=== PATIENT | male | born 1955 | race Caucasian/White ===

== ENCOUNTER 2022-07-05 12:37 | Emergency (ER) | payer OTHER, SELFPAY ==
[2022-07-05 12:52] VITALS: BP 181/83; PULSE 64; RESP 18; TEMP 36.2; O2SAT 95; BMI 37.1
[2022-07-05 15:43] VITALS: BP 133/91; PULSE 65; RESP 20; TEMP 36.4; O2SAT 96
--- NOTE | 2022-07-05 16:05 | ED_ITS ---
HPI - General Adult General Time Seen by Provider: 16:05 Date Seen: 07/05/22 Chief complaint: Back Injury/Pain Stated complaint: Lower Back Pain Time Seen by Provider: 07/05/22 16:05 Source: patient and RN notes reviewed Mode of arrival: ambulatory Limitations: no limitations History of Present Illness HPI narrative: Patient presents with intermittent left sided back pain that is non-radiating since this am. This awoke him early today from sleep, did proceed to work. Has had nausea when the pain has been severe. Did not feel like eating lunch today but no abdominal pain, no vomiting, no diarrhea, no constipation. Thinks about 6 months ago had self-limited episode. No trauma. Pain doesn't go into legs. No urinary symptoms, no blood in urine. No history of kidney stones. Tried 2 advil this am and no change. Has not had any pain for about 2 hours, no current nausea. No associated respiratory symptoms. Takes Advil PM, lisinopril and simvastatin. Related Data Home Medications Medication Instructions Recorded Confirmed lisinopril 07/05/22 simva 07/05/22 Previous Rx's Medication Instructions Recorded ketorolac 10 mg tablet 10 mg PO Q6H PRN pain 5 days #20 07/05/22 tabs tamsulosin 0.4 mg capsule (Flomax) 0.4 mg PO DAILY #14 caps 07/05/22 Review of Systems Status of ROS: Reports: 10 or more systems reviewed and unremarkable except as noted in History and below PFSH PFS Social History Smoking Status: Former smoker What tobacco products do you use: cigarettes Smoking quit date/years: >15 years ago Do you use any of these nicotine containing products: None Second hand tobacco smoke exposure: No How often do you have a drink containing alcohol: 2-4 times a month How many standard drinks containing alcohol do you have on a typical day: 1 or 2 AUDIT-C Alcohol total score: 2 Non-prescribed substance use: denies use Exam Const: Vital Signs, click to edit/add: Vital Signs - 24 hr 07/05/22 12:52 07/05/22 15:43 Temperature 97.1 F L 97.5 F L Pulse Rate [Right Pulse Oximeter] 64 65 Respiratory Rate 18 20 Blood Pressure [Ri ght Upper Arm] 181/83 H 133/91 H Pulse Oximetry 95 96 Oxygen Delivery Me thod Room Air Documenting provider has reviewed patient's vital signs: yes Common normals: no apparent distress (sitting up on edge of bed), average body habitus, oriented x3, no limitations, healthy appearing, alert and well nourished General appearance: cooperative, comfortable, well kempt and well developed HENMT: Common normals: normocephalic, head/scalp atraumatic, hearing grossly normal bilaterally, external nose normal, nasal mucous membranes and turbinates normal, moist oral mucous membranes, oropharynx normal and dentition normal Head and scalp: normocephalic and atraumatic Nose: external nose normal and nasal mucous membranes and turbinates normal Eye: Common normals: PERRL, EOMs intact bilaterally, conjunctivae normal and no scleral icterus General eye: normal appearance of both eyes Conjunctiva: conjunctiva(e) normal Pupil: PERRL Neck & C-Spine: Common normals: full ROM, no lymphadenopathy, supple, no meningeal signs, no JVD and thyroid normal Thyroid: thyroid normal Resp: Common normals: normal respiratory effort, no retractions, no use of accessory muscles and clear to auscultation bilaterally Auscultation: clear to auscultation bilaterally Cardio: Common normals: no JVD, regular rate, regular rhythm, S1 normal heart sound, S2 normal heart sound, no gallops, no clicks and no murmurs Rate: regular rate Rhythm: regular rhythm Heart sounds: S1 normal and S2 normal GI: Common normals: Normal to inspection, nondistended, normoactive bowel sounds present, soft to palpation, non-tender, no hepatosplenomegaly and no ma sses Palpation: soft and no hepatosplenomegaly : Common normals: no CVA tenderness Bladder/kidney exam: no CVA tenderness Back & Pelvis: Common normals: no CVA tenderness, thoracic and lumbar spine normal to inspection, no thoracic nor lumbar tenderness, thoraco-lumbar ROM normal and straight leg raise negative bilaterally Extremity: Common normals: normal to inspection, full ROM, no calf tenderness and no pedal edema Neuro: Common normals: oriented x3, moves all extremities, no focal motor deficits and no sensory deficits noted Sensorium/orientation: alert Meningeal signs: no meningeal signs Psych: Appearance: well kempt Course Course Hospital Course: We will proceed with CT non-contrast as I am suspicious for kidney stones. Presentation seems to be consistent with kidney stone. Will get baseline labs including a urinalysis. Right now is pain-free and nausea free, will intervene if need be should he have return of symptoms. Reevaluation(s) Reevaluation #1: Reviewed with patient and provided a copy of his CT report. He has nonobstructing retained stones in the right kidney. Reviewed with him these could pass tomorrow, may never passed, we really have no way of telling. As far as the left side, there is an obstructing kidney stone that is 2 mm in the dist al left ureter. Advised him that he will likely have some intermittent pain until this moves through to the bladder. At 2 mm, it should pass with out need for intervention. We will place him on Flomax, discussed the rationale for that. He seems to be quite comfortable. Will send him with a course of Toradol given he has normal kidney function. Can supplement with Tylenol. Will send with a week of Flomax as well. Reviewed signs and symptoms for return. Time: 17:42 Vital Signs Vital signs: Initial Vital Signs Temperature 97.1 F L 07/05/22 12:52 Temperature Source Temporal Artery Scan 07/05/22 12:52 Pulse Rate 64 07/05/22 12:52 Respiratory Rate 18 07/05/22 12:52 Blood Pressure 181/83 H 07/05/22 12:52 Blood Pressure Mean 115 07/05/22 12:52 Blood Pressure Position Sitting 07/05/22 12:52 Pulse Oximetry 95 07/05/22 12:52 Oxygen Delivery Method 07/05/22 12:52 Vital Signs Temperature 97.1 F L 07/05/22 12:52 Pulse Rate 64 07/05/22 12:52 Respiratory Rate 18 07/05/22 12:52 Blood Pressure 181/83 H 07/05/22 12:52 Pulse Oximetry 95 07/05/22 12:52 Oxygen Delivery Method 07/05/22 12:52 Temperature 97.5 F L 07/05/22 15:43 Pulse Rate 65 07/05/22 15:43 Respiratory Rate 20 07/05/22 15:43 Blood Pressure 133/91 H 07/05/22 15:43 Pulse Oximetry 96 07/05/22 15:43 Oxygen Delivery Method 07/05/22 12:52 Medical Decision Making Lab Data Lab results reviewed: Yes I reviewed the patient's lab results Labs: Lab Results 07/05/22 07/05/22 07/05/22 Range/Units 16:45 16:45 16:45 WBC 9.83 (4.50-11.00) K/uL RBC 5.23 (4.30-5.90) m/uL Hgb 15.6 (13.5-17.5) gm/dL Hct 45.4 (37.0-53.0) % MCV 87 (80-100) fL MCH 30 (26-34) pg MCHC 34 (32-36) gm/dL RDW Coeff of Jonny 13.0 (11.5-15.5) % Plt Count 158 (140-440) K/uL Neut % (Auto) 83.4 H (42.0-72.0) % Lymph % (Auto) 11.3 L (20-44) % [place] % (Auto) 4.6 (0.0-11.0) % Eos % (Auto) 0.3 (0.0-7.0) % Baso % (Auto) 0.2 (0.0-3.0) % Neut # (Auto) 8.20 H (1.7-7.0) K/uL Lymph # (Auto) 1.10 (0.90-2.90) K/uL [place] # (Auto) 0.50 (0.00-0.90) K/UL Eos # (Auto) 0.03 (0.00-0.50) K/uL Baso # (Auto) 0.02 (0.00-0.30) K/uL Sodium 139 (135-149) mmol/L Potassium 4.7 (3.6-5.1) mmol/L Chloride 106 (96-114) mmol/L Carbon Dioxide 24 (20-32) mmol/L BUN 24 (7-30) mg/dL Creatinine 0.7 (0.5-1.5) mg/dL Estimated Creat Clear 65.57 Estimated GFR 102 ml/min Glucose 97 (60-115) mg/dL Lactate 0.7 (0.5-1.9) mmol/L Calcium 9.2 (8.4-10.6) mg/dL C-Reactive Protein < 0.5 L (0.5-1.0) mg/dL Urine Color (Yellow) Urine Appearance (Clear) Urine pH (5.0-8.5) Ur Specific [place] (1.000-1.030) Urine Protein (Negative) Urine Glucose (UA) (Negative) Urine Ketones (Negative) Urine Blood (Negative) Urine Nitrite (Negative) Urine Bilirubin (Negative) Urine Urobilinogen (0.2-1.0) Ur Leukocyte Esterase (Negative) Urine RBC (0-2) Urine WBC (0-5) Ur Squamous Epith Cells (None-Few) Urine Bacteria (None) 07/05/22 Range/Units 16:50 WBC (4.50-11.00) K/uL RBC (4.30-5.90) m/uL Hgb (13.5-17.5) gm/dL Hct (37.0-53.0) % MCV (80-100) fL MCH (26-34) pg MCHC (32-36) gm/dL RDW Coeff of Jonny (11.5-15.5) % Plt Count (140-440) K/uL Neut % (Auto) (42.0-72.0) % Lymph % (Auto) (20-44) % [place] % (Auto) (0.0-11.0) % Eos % (Auto) (0.0-7.0) % Baso % (Auto) (0.0-3.0) % Neut # (Auto) (1.7-7.0) K/uL Lymph # (Auto) (0.90-2.90) K/uL [place] # (Auto) (0.00-0.90) K/UL Eos # (Auto) (0.00-0.50) K/uL Baso # (Auto) (0.00-0.30) K/uL Sodium (135-149) mmol/L Potassium (3.6-5.1) mmol/L Chloride (96-114) mmol/L Carbon Dioxide (20-32) mmol/L BUN (7-30) mg/dL Creatinine (0.5-1.5) mg/dL Estimated Creat Clear Estimated GFR ml/min Glucose (60-115) mg/dL Lactate (0.5-1.9) mmol/L Calcium (8.4-10.6) mg/dL C-Reactive Protein (0.5-1.0) mg/dL Urine Color Yellow (Yellow) Urine Appearance Clear (Clear) Urine pH 5.5 (5.0-8.5) Ur Specific [place] 1.020 (1.000-1.030) Urine Protein Negative (Negative) Urine Glucose (UA) Negative (Negative) Urine Ketones 1+ A (Negative) Urine Blood 2+ A (Negative) Urine Nitrite Negative (Negative) Urine Bilirubin Negative (Negative) Urine Urobilinogen 0.2 (0.2-1.0) Ur Leukocyte Esterase Negative (Negative) Urine RBC 10-25 A (0-2) Urine WBC 2-5 (0-5) Ur Squamous Epith Cells None (None-Few) Urine Bacteria None (None) Imaging Data CT scan - abdomen: Attestation: I have reviewed the pertinent imaging results. My impression: Did visualize CT and do see some non-obstructing stones in the right kidney, ?distal left stone in ureter. Await radiology over-read. Radiologist's impression: Patient: MAUDE REAL Facility: [facility] Site . Site : [id number] Study: CT Abdomen/Pelvis W/O-07/05/2022 4:41:32 PM Ordering Physician: Ileana Cornejo Final Report: INDICATION: Intermittent left flank pain. TECHNIQUE: CT abdomen and pelvis without contrast. COMPARISON: None. FINDINGS: Lower chest: Unremarkable. Liver: Several too small to characterize subcentimeter hypodense foci. Normal size and attenuation. Gallbladder and bile ducts: No stones or inflammation. No biliary dilatation. Pancreas: Unremarkable. No mass or inflammation. Spleen: Normal in size. No masses. Adrenal glands: Normal in size. No nodules. Kidneys: Several 2-3 mm nonobstructing stones in the right kidney. 2 mm stone in the left distal ureter with associated mild proximal hydroureteronephrosis. Unremarkable right ureter and bladder. GI tract: Unremarkable. Normal in caliber. No sign of inflammation. Normal appendix. Vasculature: Normal caliber abdominal aorta with mild atherosclerotic calcification. Lymph nodes: No lymphadenopathy. Peritoneum/Abdominal Wall: Unremarkable. No free air or significant free fluid. Pelvis: Unremarkable. No pelvic masses. Bones: Unremarkable for age. IMPRESSION: 2 mm stone in the left distal ureter with associated mild proximal hydrou reteronephrosis. Several 2-3 mm nonobstructing right nephroliths. Please note that all CT scans at this facility use dose modulation, iterative reconstruction, and/or weight-based dosing when appropriate to reduce radiation dose to as low as reasonably achievable. Dictated by Shahriar Pena MD @ 07/05/2022 5:34:12 PM (Electronic Signature) Critical Care Time Critical Care Time Critical Care Time: No Discharge Plan Discharge Clinical Impression: Renal colic Patient Disposition: Home, Self-Care Condition: Stable Instructions: Kidney Stones (ED), Renal Colic (ED) Additional Instructions: Drink adequate fluids for the goal of clear looking urine. Use Flomax daily until the stone passes, have written for 14 days worth. Use Toradol baseline for pain management, can supplement with Tylenol per bottle directions if needed for extra pain control. Avoid extra Advil wall on the Toradol. It should be fine to still use your Advil p.m. for sleeping while on this short course of Toradol. If you have ongoing pain that is lasting 2 weeks, pain is uncontrolled with the outlined medications, developed fever with a kidney stone, need to be re-evaluated in the emergency room. Otherwise, schedule a clinic followup within the next few weeks to recheck with your primary care provider. Activity Level: Activity as Tolerated Prescriptions: New ketorolac 10 mg tablet 10 mg PO Q6H PRN (Reason: pain) 5 Days Qty: 20 0RF tamsulosin [Flomax] 0.4 mg capsule 0.4 mg PO DAILY Qty: 14 0RF No Action lisinopril simva Stand Alone Forms: [employer] Info Instructions
--- NOTE | 2022-07-05 16:13 | CRLHL7_ITS ---
For Patients: As a result of the Century Cures Act, medical imaging exams and procedure reports are released immediately into your electronic medical record. You may view this report before your referring provider. If you have questions, please contact your health care provider. INDICATION: Intermittent left flank pain. TECHNIQUE: CT abdomen and pelvis without contrast. COMPARISON: None. FINDINGS: Lower chest: Unremarkable. Liver: Several too small to characterize subcentimeter hypodense foci. Normal size and attenuation. Gallbladder and bile ducts: No stones or inflammation. No biliary dilatation. Pancreas: Unremarkable. No mass or inflammation. Spleen: Normal in size. No masses. Adrenal glands: Normal in size. No nodules. Kidneys: Several 2-3 mm nonobstructing stones in the right kidney. 2 mm stone in the left distal ureter with associated mild proximal hydroureteronephrosis. Unremarkable right ureter and bladder. GI tract: Unremarkable. Normal in caliber. No sign of inflammation. Normal appendix. Vasculature: Normal caliber abdominal aorta with mild atherosclerotic calcification. Lymph nodes: No lymphadenopathy. Peritoneum/Abdominal Wall: Unremarkable. No free air or significant free fluid. Pelvis: Unremarkable. No pelvic masses. Bones: Unremarkable for age. IMPRESSION: 2 mm stone in the left distal ureter with associated mild proximal hydroureteronephrosis. Several 2-3 mm nonobstructing right nephroliths. Please note that all CT scans at this facility use dose modulation, iterative reconstruction, and/or weight-based dosing when appropriate to reduce radiation dose to as low as reasonably achievable. Dictated by Shahriar Pena MD @ 07/05/2022 5:34:12 PM (Electronically Signed)
[2022-07-05 16:51] LABS: Basophils Percent Auto 0.2 % (0.0-3.0); Eosinophils Percent Auto 0.3 % (0.0-7.0); Hematocrit 45.4 % (37.0-53.0); Hemoglobin* 15.6 gm/dL (13.5-17.5); Immature Granulocytes Pct Auto 0.2 %; Lymphocytes Percent Auto 11.3 % (20-44); Mean Corpuscular HGB Conc 34 gm/dL (32-36); Mean Corpuscular Hemoglobin 30 pg (26-34); Mean Corpuscular Volume 87 fL (80-100); Monocytes Percent Auto 4.6 % (0.0-11.0); Neutrophils Percent Auto 83.4 % (42.0-72.0); Platelet Count* 158 K/uL (140-440); Red Blood Count 5.23 m/uL (4.30-5.90); White Blood Count* 9.83 K/uL (4.50-11.00)
[2022-07-05 16:52] LABS: Basophils Absolute Auto 0.02 K/uL (0.00-0.30); Eosinophils Absolute Auto 0.03 K/uL (0.00-0.50); Immature Granulocytes Abs Auto 0.02 K/uL (0.00-0.30)
[2022-07-05 16:55] LABS: Lactate* 0.7 mmol/L (0.5-1.9)
[2022-07-05 16:57] LABS: Slide Review Reflex No
[2022-07-05 17:03] LABS: Appearance Urine Clear (Clear); Bilirubin Urine Negative (Negative); Blood Urine 2+ (Negative); Color Urine Yellow (Yellow); Glucose Urine Negative (Negative); Ketones Urine 1+ (Negative); Leukocyte Esterase Urine Negative (Negative); Nitrite Urine Negative (Negative); Protein Urine Negative (Negative); Urobilinogen Urine 0.2 (0.2-1.0); pH Urine 5.5 (5.0-8.5)
[2022-07-05 17:21] LABS: Chloride* 106 mmol/L (96-114); Potassium* 4.7 mmol/L (3.6-5.1); Sodium* 139 mmol/L (135-149)
[2022-07-05 17:24] LABS: Blood Urea Nitrogen* 24 mg/dL (7-30); Carbon Dioxide* 24 mmol/L (20-32); Creatinine* 0.7 mg/dL (0.5-1.5); Est. Creatinine Clearance* 65.57; Estimated Glomerular Filt Rate 102 ml/min
[2022-07-05 17:25] LABS: Calcium* 9.2 mg/dL (8.4-10.6); Glucose* 97 mg/dL (60-115)
[2022-07-05 17:28] LABS: C Reactive Protein* < 0.5 mg/dL (0.5-1.0)
[2022-07-05 18:14] LABS: Erythrocyte SedimentationRate* 5 mm/hr (2-15)
== END 2022-07-05 17:54 | disposition home or self-care (01) ==
PROVIDERS: Emergency Provider Family Medicine
DX: N23 Unspecified renal colic (principal)
CPT/HCPCS: 36415; 74176; 80048; 81001; 83605; 85025; 85651; 86140; 99284